=== PATIENT | male | born 1985 | race Caucasian/White ===

== ENCOUNTER 2020-03-29 23:14 | Emergency (ER) | payer MEDICAID ==
[~2020-03-29] VITALS: Ht 188 cm; Wt 89.0 kg
[~2020-03-29 23:14] MED LIST: ALBU2.5V10 INH; ALBU8HFA IH; PRED20TA PO
[2020-03-29 23:27] VITALS: BP 155/105
[2020-03-30] MEDS ORDERED: predniSONE 20 mg tablet PO ONE (00:05)
[2020-03-30] MEDS ORDERED: sulfamethoxazole/trimethoprim DS (800/160mg) tablet PO ONE (00:05)
[2020-03-30] MEDS ORDERED: SULF1TAB49 PO (00:08)
[2020-03-30] MEDS ORDERED: PRED20TA PO (00:08)
== END 2020-03-30 00:41 | disposition home or self-care (01) ==
LOC: ER 23:15
DX: L03.116 Cellulitis of left lower limb (principal); L23.7 Allergic contact dermatitis due to plants, except food; J45.909 Unspecified asthma, uncomplicated; F12.90 Cannabis use, unspecified, uncomplicated; Z56.0 Unemployment, unspecified; Z79.2 Long term (current) use of antibiotics; Z79.899 Other long term (current) drug therapy
CPT/HCPCS: 99283; J7512

== ENCOUNTER 2021-03-30 14:44 | Emergency (ER) | payer MEDICAID ==
[~2021-03-30] VITALS: Ht 182.9 cm; Wt 86.0 kg
[2021-03-30 15:47] VITALS: BP 138/101
== END 2021-03-30 21:11 | disposition left against medical advice (07) ==
LOC: ER 14:46
DX: S60.351A Superficial foreign body of right thumb, initial encounter (principal); Z53.21 Procedure and treatment not carried out due to patient leaving prior to being seen by health care provider; W45.8XXA Other foreign body or object entering through skin, initial encounter; Y93.89 Activity, other specified; Y92.89 Other specified places as the place of occurrence of the external cause; Y99.8 Other external cause status
CPT/HCPCS: 99281